=== PATIENT | female | born 1955 | race Caucasian/White ===

== ENCOUNTER 2017-11-02 13:35 | Outpatient (CLI) | payer BC | END 2017-11-02 13:36 | disposition home or self-care (01) | LOC: BICCT 13:35 | PROVIDERS: ATTEND Otolaryngology | DX: J32.9 Chronic sinusitis, unspecified (principal) ==

== ENCOUNTER 2018-09-22 09:13 | Outpatient (CLI) | payer BC ==
--- NOTE | 2018-09-22 10:09 | ULT ---
ABDOMINAL ULTRASOUND HISTORY: Abdominal pain. COMPARISON: 07/06/2015 FINDINGS: Liver: Persisting small echogenic focus in the left hepatic lobe on prior exam is not well appreciate d on today's exam. Liver has a normal sonographic appearance on the current study. Gallbladder: No gallbladder calculi are visualized. There is no gallbladder wall thickening or perich olecystic fluid. Common duct: Common duct is normal in caliber measuring measuring 0.5 cm in diameter. Pancreas: The limited visualized pancreas demonstrates a normal sonographic appearance. IVC: Limited visualized IVC has a normal sonographic appearance. Aorta: The aorta is normal in caliber. Spleen: Within normal limits. Kidneys: Right kidney demonstrates a normal sonographic appearance measuring 11.2 cm in length. The l eft kidney measures 9.9 cm in length. A 1.5 cm anechoic exophytic cystic lesion is seen in the superior pole right kidney with adjacent punctate echogenic focus probably related to tiny calcificat ion in the wall of this cyst suggesting Bosniak type II cystic renal lesion. The additional tiny cystic lesions within left kidney on prior study are not well delineated on today's exam. IMPRESSION: 1. Left renal cyst with adjacent punctate echogenic focus which may represent tiny calcification, but this could be related to a prominent vessel. 2. No gallbladder calculi are seen, and the common duct is normal in caliber.
== END 2018-09-22 09:14 | disposition home or self-care (01) ==
LOC: BICULT 09:13
PROVIDERS: ATTEND Family Medicine
DX: R10.84 Generalized abdominal pain (principal); N28.1 Cyst of kidney, acquired
CPT/HCPCS: 76700

== ENCOUNTER 2018-09-24 07:41 | Outpatient (CLI) | payer BC ==
--- NOTE | 2018-09-24 09:06 | CT ---
CT ABDOMEN AND PELVIS WITH AND WITHOUT IV CONTRAST: HISTORY: abdominal pain, hematuria FINDINGS: The lung bases are clear. The spleen, pancreas, right adrenal gland appear normal. No calcified galls tones are seen. There is a 7 mm low-density lesion in the liver adjacent to the gallbladder, too small to characterize, likely cyst. Small low-density lesions in the kidneys are likely cysts. A 1 cm exophytic cyst is seen arising from the left kidney. There is a 1.8 cm left adrenal nodule with attenuation values less than 10 Hounsfield units on the noncontrasted exam, consistent with a benign adenoma. No calculi are seen in the kidneys, ureters or the urinary bladder. There is normal contrast excretio n into the ureters and the urinary bladder. No free air or free fluid or lymphadenopathy is seen. There are vascular calcification is without evidence of an is no dilatation of the abdominal aorta. D egenerative changes are present in the spine. There is a 2 cm ill-defined mass in the pelvis with the few adjacent to prominent left-sided lymph no marty which cannot be adequately characterized due to absence of intraluminal contrast in the surrounding bowel loops. The patient is post hysterectomy. IMPRESSION: 1. No CT evidence of urinary tract calculi or obstruction. 2. Renal cysts. 3. Left adrenal adenoma. 4. Pelvic mass should be evaluated with a CT scan of the pelvis with oral and IV contrast.
== END 2018-09-24 07:42 | disposition home or self-care (01) ==
LOC: BICCT 07:41
PROVIDERS: ATTEND Urology
DX: I70.1 Atherosclerosis of renal artery (principal); R31.29 Other microscopic hematuria; N28.1 Cyst of kidney, acquired; D35.02 Benign neoplasm of left adrenal gland; R19.00 Intra-abdominal and pelvic swelling, mass and lump, unspecified site
CPT/HCPCS: 74178; 82565

== ENCOUNTER 2018-10-08 07:40 | Outpatient (CLI) | payer BC ==
--- NOTE | 2018-10-08 09:51 | CT ---
PELVIC CT SCAN WITH IV CONTRAST: HISTORY: Followup pelvic mass from prior urogram. Abdominal pain. History of fibromuscular dysplasia of the renal artery and prior hysterectomy. COMPARISON: 09/24/[address] scan, CTA abdomen with and without, 12/22/2008. FINDINGS: The small ill-defined area of density described on the prior CT scan is again demonstrated. This santiago sures approximately 1.5 x 2.3 cm in size and appears to be associated with a small punctate calcifica tion. Etiology is uncertain, but this could represent residual ovarian or adnexal tissue given histo ry of prior hysterectomy. There is some abnormal wall thickening of the terminal ileum seen on toemy holley's study with the terminal ileum wall measuring up to approximately 1.1 cm in thickness. This is ce rtainly concerning for the possibility of distal ileitis and possible regional enteritis/Crohn's dise ase. There are some stable borderline-sized lymph nodes noted in the inferior right posterior mesent katelyn fat, but these show no significant change dating back to the 2008 study. No abscess or abnormal fluid collection. The colon appears unremarkable. No large or small bowel obstruction. IMPRESSION: 1. Poorly defined mass of concern based on the prior abdomen and pelvic CT scan is redemonstrated an d contains a small punctate calcification. I favor this being this being some type of residual ovari an or adnexal tissue status post hysterectomy. 2. Marked abnormal wall thickening of the distal ileum and terminal ileum raising concern for Crohn' s disease or regional enteritis. No abscess or abnormal fluid collection. CODE T POS: [facility]
== END 2018-10-08 07:41 | disposition home or self-care (01) ==
LOC: BICCT 07:40
PROVIDERS: ATTEND Family Medicine
DX: R19.00 Intra-abdominal and pelvic swelling, mass and lump, unspecified site (principal); K63.89 Other specified diseases of intestine; Z90.710 Acquired absence of both cervix and uterus
CPT/HCPCS: 72193; 82565

== ENCOUNTER 2018-12-01 08:34 | Outpatient (CLI) | payer BC ==
--- NOTE | 2018-12-01 11:30 | CT ---
CT ABDOMEN AND PELVIS WITH AND WITHOUT IV CONTRAST (CT ENTEROGRAPHY): HISTORY: Abdominal pain. Abnormal CT scan. COMPARISON: 09/24/2018, 10/08/2018. FINDINGS: The lung bases are clear. The liver, spleen, pancreas, and right adrenal gland are normal. The 1.8 cm left adrenal adenoma stable. No calculi are seen in the kidneys, ureters or the urinary bladder. No hydroureteronephrosis is seen on either side. Left renal cysts are again noted. There are vascular calcifications without evidence of aneurysmal dilatation of the abdominal aorta. N o free air or free fluid are lymphadenopathy seen. The small bowel loops are not abnormally dilated. There is thickening of the wall of the terminal ile um with enhancement of the mucosa. The previously noted the ill-defined mass in the pelvis has resolved in the interim. No abnormally loculated fluid collection is noted to suggest abscess formati on. Patient is post hysterectomy IMPRESSION: Findings are suggestive of inflammatory bowel disease involving the terminal ileum.
== END 2018-12-01 08:35 | disposition home or self-care (01) ==
LOC: CT 08:34
PROVIDERS: ATTEND Internal Medicine Gastroenterology
DX: R10.9 Unspecified abdominal pain (principal); R93.5 Abnormal findings on diagnostic imaging of other abdominal regions, including retroperitoneum
CPT/HCPCS: 74178; 82565

== ENCOUNTER 2019-03-30 09:28 | Outpatient (CLI) | payer BC ==
--- NOTE | 2019-03-30 09:56 | MMO ---
Bilateral MAMMO Bilat Screen [facility]. CLINICAL HISTORY: Patient is 63 years old and is seen for screening. The patient has the following family history of breast cancer: maternal grandmother, at age 42, premenopausal and maternal aunt, Great aunt. The patient has no personal history of cancer. VIEWS: The views performed were: bilateral craniocaudal with tomosynthesis and bilateral mediolateral oblique with tomosynthesis. FILMS COMPARED: The present examination has been compared to prior imaging studies performed at [facility] on 08/30/2013, 10/31/2014, 11/28/2015 and 01/28/2017. This study has been interpreted with the assistance of computer-aided detection. MAMMOGRAM FINDINGS: There are scattered fibroglandular densities. Finding 1: There are stable benign appearing calcifications seen in both breasts. Finding 2: There are stable benign appearing densities seen in both breasts. There are no suspicious masses, suspicious calcifications, or new areas of architectural distortion. IMPRESSION: THERE IS NO MAMMOGRAPHIC EVIDENCE OF MALIGNANCY. A ROUTINE FOLLOW-UP MAMMOGRAM IN 1 YEAR IS RECOMMENDED. THE RESULTS OF THIS EXAM WERE SENT TO THE PATIENT. ACR BI-RADS Category 2 - Benign finding MAMMOGRAPHY NOTE: 1. A negative mammogram report should not delay a biopsy if a dominant of clinically suspicious mass is present. 2. Approximately 10% to 15% of breast cancers are not detected by mammography. 3. Adenosis and dense breasts may obscure an underlying neoplasm. Reported by: DARION PEREZ MD Electonically Signed: [id number]
== END 2019-03-30 09:29 | disposition home or self-care (01) ==
LOC: BICMAMMO 09:28
PROVIDERS: ATTEND Family Medicine
DX: Z12.31 Encounter for screening mammogram for malignant neoplasm of breast (principal); Z80.3 Family history of malignant neoplasm of breast
CPT/HCPCS: 77063; 77067

== ENCOUNTER 2019-05-26 14:05 | Outpatient (CLI) | payer BC ==
--- NOTE | 2019-05-26 15:26 | RAD ---
CHEST TWO VIEWS: HISTORY: Bronchitis. FINDINGS: The lungs are clear. No evidence of infiltrate. Vasculature is normal. Heart and mediastinum are unre markable. IMPRESSION: No acute process identified. POS: C
== END 2019-05-26 14:06 | disposition home or self-care (01) ==
LOC: BICRAD 14:05
PROVIDERS: ATTEND Family Medicine
DX: J20.9 Acute bronchitis, unspecified (principal)
CPT/HCPCS: 71046

== ENCOUNTER 2019-06-07 09:25 | Outpatient (CLI) | payer BC | END 2019-06-07 09:26 | disposition home or self-care (01) | LOC: CTENTCT 09:25 | PROVIDERS: ATTEND Specialist | DX: J34.2 Deviated nasal septum (principal); R51 Headache | CPT/HCPCS: 70486 ==

== ENCOUNTER 2019-06-16 11:07 | Day surgery (SDC) | payer BC ==
[2019-06-15 11:03] VITALS: BMI 23.9
[2019-06-16] MEDS ORDERED: AFRIN NASAL MIST 15 ML BOT ONE ×2 (12:00→12:47)
[2019-06-16] MEDS ORDERED: Famotidine/PF 20 mg/2ml Vial ONE (12:33)
[2019-06-16] MEDS ORDERED: Scopolamine 1.5 mg/72 hour Patch ONE (12:33)
[2019-06-16] MEDS ORDERED: Lidocaine 1% w/Epinephrine 1:100K 20 ML VIAL ONE (12:47)
[2019-06-16] MEDS ORDERED: EPINEPHrine 1 MG/ML AMP ONE (12:47)
[2019-06-16] MEDS ORDERED: Fentanyl 100 MCG/2 ML VIAL ONE ×2 (13:15→14:35)
[2019-06-16] MEDS ORDERED: Bacitracin Zinc Ointment 30 gm TUBE ONE (13:30)
[2019-06-16] MEDS ORDERED: PHENYLEPHRINE-NS 100 MCG/ML 10 ML SYRINGE ONE (13:40)
[2019-06-16] MEDS ORDERED: Succinylcholine Chloride 20 MG/ML 10 ml SYRINGE FS ONE (13:40)
[2019-06-16] MEDS ORDERED: PROPOFOL 200 MG/20 ML VIAL ONE (13:40)
[2019-06-16] MEDS ORDERED: Ondansetron PF 4 MG/2 ML Vial ONE ×2 (13:40→14:35)
[2019-06-16] MEDS ORDERED: Rocuronium Bromide 10 MG/ML (10ML VIAL) ONE (13:40)
[2019-06-16] MEDS ORDERED: Lidocaine 1% PF 5 ML VIAL ONE (13:40)
--- NOTE | 2019-06-16 15:13 | OP ---
DATE OF PROCEDURE: 06/16/2019 PREOPERATIVE DIAGNOSES: 1. Chronic sinusitis. 2. Recurrent sinusitis. 3. Hypertrophic inferior turbinates. 4. Bilateral accessory ostia. POSTOPERATIVE DIAGNOSES: 1. Chronic sinusitis. 2. Recurrent sinusitis. 3. Hypertrophic inferior turbinates. 4. Bilateral accessory ostia. PROCEDURES PERFORMED: 1. Bilateral nasal endoscopy with submucosal resection of inferior turbinates. 2. Bilateral nasal endoscopy with maxillary antrostomy with removal of tissue. 3. Bilateral nasal endoscopy with total ethmoidectomy. 4. Bilateral nasal endoscopy with frontal sinusotomy. DESCRIPTION OF PROCEDURE: BILATERAL NASAL ENDOSCOPY WITH SUBMUCOSAL RESECTION OF INFERIOR TURBINATES: After consent was obtained, the patient was identified, brought to the operating room, and placed on the operating room table in the supine position. Consent was obtained, notifying the patient of the possibility of additional infections, bleeding, brain injury, and eye/orbital injury. The patient was placed on the operating room table, and general endotracheal anesthesia and intravenous access was obtained. The patient was then positioned, prepped and draped for endoscopic sinus surgery. Nasal preparation included trimming nasal vestibular hairs and spraying in topical Afrin. We then placed Afrin topical solution on nasal pledgets and strategically located them intranasally. The perinasal mucosa was injected with 1% lidocaine with 1:100,000 epinephrine in the submucoperichondrial plane of the septum, lateral nasal wall, and anterior to the uncinate. The patient was then prepped and draped in a sterile fashion and positioned for endoscopic sinus surgery. With the 0-degree endoscope, the patient underwent systematic nasal endoscopy. There were no suspicious internasal masses or lesions identified. We then focused our attention to the osteomeatal complex region under the middle turbinate. The inferior turbinates were visualized with a 0 degree endoscope and outfractured with a Hermitage elevator. The inferior medial aspect was cauterized with the electrocautery. Hemostasis was obtained . After adequate airway was established, we turned our attention to the contralateral side and used a similar procedure. Again, a Oscar elevator was used to outfracture inferior turbinates under endoscopic visualization. With a suction cautery, the free inferior medial aspect was cauterized under direct visualization along the length of the inferior turbinate. At this point, we then turned our attention to the contralateral side and proceeded with endoscopic sinus surgery. At the completion of the case, Dontae beach splints were placed in the ethmoid cavities after the ethmoidectomy. There were no complications. The patient tolerated the procedure well and was discharged to the recovery room in stable condition prior to return to the preoperative day stay with ultimate discharge home. Prescriptions for pain medication and antibiotics were provided. The patient received intramuscular Depo-Medrol during the case. BILATERAL NASAL ENDOSCOPY WITH MAXILLARY ANTROSTOMY WITH REMOVAL OF TISSUE: The uncinate was then identified and the extent of the uncinate was appreciated by out-fracturing the uncinate with the ball-tip probe. We then used the sickle blade to disarticulate the uncinate from the lateral nasal wall. This was then removed with straight biting and upbiting punches with the remaining shrouds of mucosa and bony septum removed with the micro-debrider. The natural os of the maxillary sinus was then identified and enlarged with the maxillary punches and back biting forceps. BILATERAL NASAL ENDOSCOPY WITH TOTAL ETHMOIDECTOMY: The anterior face of the ethmoid bulla was entered and with the micro-debrider, dissection continued posteriorly to the ground lamella. The limits of dissection included the insertion of the middle turbinate, medial orbital wall, and base of skull. We similarly identified the frontal recess and removed shrouds of bone and debris in that region to obtain patency into the agger nasi region and frontal recess. We then entered the ground lamella and its anteroinferior aspect and proceeded posteriorly, opening the posterior ethmoid air-cell system. Again, the limits of dissection included the base of skull and medial orbital wall. BILATERAL NASAL ENDOSCOPY WITH FRONTAL SINUSOTOMY: Following the ethmoidectomy, we then turned our attention to the frontal nasal recess. The agger nasi cells were addressed and the frontal recess was exposed. The natural opening to the frontal sinus was identified. At this point, any obstructing shrouds of mucosa and bony fragments were removed with a curved microdebrider. The wound was then examined and found to be free of any obstructing debris. We then turned our attention to the contralateral side and performed a similar procedure again under endoscopic visualization using a 45-degree scope. We were able to visualize the frontal recess. Obstructing shrouds of mucosa and bone were removed with a microdebrider. The natural os of frontal sinus was identified and enlarged and irrigated. At this point, the frontal sinusotomy was completed and we turned to the next area of concern. Job ID: [id number]
[2019-06-16] MEDS ORDERED: Promethazine HCl 25 MG/ML VIAL ONE (16:05)
[2019-06-16] MEDS ORDERED: Sodium Chloride 0.9% 10 ML ONE (16:05)
== END 2019-06-16 16:40 | disposition home or self-care (01) ==
LOC: SDC 11:07
PROVIDERS: ATTEND Specialist
PROC: 099Q8ZZ Drainage of Right Maxillary Sinus, Via Natural or Artificial Opening Endoscopic (ICD-10-PCS; principal; 2019-06-16)
PROC: 09BT8ZZ Excision of Left Frontal Sinus, Via Natural or Artificial Opening Endoscopic (ICD-10-PCS; principal; 2019-06-16)
PROC: 09BS8ZZ Excision of Right Frontal Sinus, Via Natural or Artificial Opening Endoscopic (ICD-10-PCS; principal; 2019-06-16)
PROC: 09BU8ZZ Excision of Right Ethmoid Sinus, Via Natural or Artificial Opening Endoscopic (ICD-10-PCS; principal; 2019-06-16)
PROC: 09BV8ZZ Excision of Left Ethmoid Sinus, Via Natural or Artificial Opening Endoscopic (ICD-10-PCS; principal; 2019-06-16)
PROC: 099R8ZZ Drainage of Left Maxillary Sinus, Via Natural or Artificial Opening Endoscopic (ICD-10-PCS; principal; 2019-06-16)
PROC: 09BL8ZZ Excision of Nasal Turbinate, Via Natural or Artificial Opening Endoscopic (ICD-10-PCS; principal; 2019-06-16)
DX: J32.9 Chronic sinusitis, unspecified (principal); J34.2 Deviated nasal septum; J34.3 Hypertrophy of nasal turbinates; J34.89 Other specified disorders of nose and nasal sinuses; I10 Essential (primary) hypertension; F17.210 Nicotine dependence, cigarettes, uncomplicated; Z88.0 Allergy status to penicillin; Z88.1 Allergy status to other antibiotic agents; Z88.2 Allergy status to sulfonamides; Z79.899 Other long term (current) drug therapy
CPT/HCPCS: 85014; 93005; 93010; J0171; J2001; J2405; J2550; J2704; J3010; S0028

== ENCOUNTER 2019-08-29 14:16 | Emergency (ER) | payer BC, OTHER ==
[2019-08-30 10:03] LABS: SARS-CoV-2 MS2 Positive; SARS-CoV-2 N Gene Negative; SARS-CoV-2 S Gene Negative; SARS-CoV-2 orf1ab Negative
== END 2019-08-29 15:15 | disposition home or self-care (01) ==
LOC: ERS 14:16
DX: R05 Cough (principal); R50.9 Fever, unspecified; Z20.828 Contact with and (suspected) exposure to other viral communicable diseases; E03.9 Hypothyroidism, unspecified; F41.9 Anxiety disorder, unspecified; F17.210 Nicotine dependence, cigarettes, uncomplicated; Z79.899 Other long term (current) drug therapy
CPT/HCPCS: 87635; 99283; U0003

== ENCOUNTER 2020-05-18 13:40 | Outpatient (CLI) | payer BC | END 2020-05-18 13:41 | disposition home or self-care (01) | LOC: CTENTCT 13:40 | PROVIDERS: ATTEND Specialist | DX: J34.89 Other specified disorders of nose and nasal sinuses (principal) | CPT/HCPCS: 70486 ==

== ENCOUNTER 2021-06-05 10:23 | Outpatient (CLI) | payer BC | END 2021-06-05 10:24 | disposition home or self-care (01) | LOC: BICMAMMO 10:23 | PROVIDERS: ATTEND Family Medicine | DX: Z12.31 Encounter for screening mammogram for malignant neoplasm of breast (principal); Z80.3 Family history of malignant neoplasm of breast | CPT/HCPCS: 77063; 77067 ==

== ENCOUNTER 2022-08-07 14:26 | Outpatient (CLI) | payer BC | END 2022-08-07 14:27 | disposition home or self-care (01) | LOC: BICMAMMO 14:26 | PROVIDERS: ATTEND Family Medicine | DX: Z12.31 Encounter for screening mammogram for malignant neoplasm of breast (principal); R92.1 Mammographic calcification found on diagnostic imaging of breast; Z91.89 Other specified personal risk factors, not elsewhere classified; Z80.3 Family history of malignant neoplasm of breast | CPT/HCPCS: 77063; 77067 ==

== ENCOUNTER 2024-02-17 13:15 | Outpatient (CLI) | payer MEDICARE | END 2024-02-17 13:16 | disposition home or self-care (01) | LOC: BICRAD 13:15 | PROVIDERS: ATTEND Family Medicine | DX: J20.9 Acute bronchitis, unspecified (principal); I51.7 Cardiomegaly | CPT/HCPCS: 71046 ==